=== PATIENT | female | born 1960 | race Caucasian/White ===

== ENCOUNTER 2021-04-10 10:49 | Outpatient (CLI) | payer BC ==
[2021-04-10 15:32] LABS: BASOPHILS % (AUTO) 0.9 %; EOSINOPHILS # (AUTO) 0.1 10^3/uL (0.0-0.7); EOSINOPHILS % (AUTO) 2.6 %; HGB - HEMOGLOBIN 15.3 g/dL (12.0-16.0); LYMPHOCYTES # (AUTO) 1.5 10^3/uL (1.5-3.5); LYMPHOCYTES % (AUTO) 32.3 %; MEAN CORPUSCULAR HGB CONC 33.3 g/dL (32.0-36.0); MEAN CORPUSCULAR VOLUME 90.2 fL (81.0-99.0); MEAN PLATELET VOLUME 11.7 fL (7.9-10.8); MONOCYTES # (AUTO) 0.3 10^3/uL (0.0-1.0); MONOCYTES % (AUTO) 6.9 %; NEUTROPHILS # (AUTO) 2.7 10^3/uL (1.5-6.6); NEUTROPHILS % (AUTO) 57.1 %; PLT - PLATELET COUNT 210 10^3/uL (130-450); WHITE BLOOD COUNT 4.7 x10^3/uL (4.8-10.8)
[2021-04-10 15:37] LABS: ALBUMIN 4.2 g/dL (3.2-5.5); ALBUMIN/GLOBULIN RATIO 1.3 (1.0-2.2); ALKALINE PHOSPHATASE 58 IU/L (42-121); ALT ALANINE AMINOTRANSFERASE 21 IU/L (10-60); AST ASPARTATE AMINOTRANSFERASE 22 IU/L (10-42); BILIRUBIN,TOTAL 1.7 mg/dL (0.2-1.0); BUN - BLOOD UREA NITROGEN 10 mg/dL (6-20); CALCIUM 9.4 mg/dL (8.5-10.3); CARBON DIOXIDE - CO2 26 mmol/L (21-32); CHLORIDE 104 mmol/L (101-111); CHOL/HDL RATIO 2.8 (<4.4); CHOLESTEROL 182 mg/dL; CREATININE 0.7 mg/dL (0.4-1.0); CRP HIGH SENSITIVITY 0.8 mg/L; GFR - MDRD 85 (>89); GLUCOSE 88 mg/dL (70-100); HDL CHOLESTEROL 65 mg/dL; LDL CHOLESTEROL,CALCULATED 105 mg/dL; LDL/HDL RATIO 1.6 (<4.4); POTASSIUM 3.8 mmol/L (3.5-5.0); SODIUM 138 mmol/L (135-145); TOTAL PROTEIN 7.4 g/dL (6.7-8.2); TRIGLYCERIDES 58 mg/dL; VLDL CHOLESTEROL 12 mg/dL
[2021-04-10 16:03] LABS: THYROID STIMULATING HORMONE 1.44 uIU/mL (0.34-5.60)
[2021-04-10 16:04] LABS: FREE T3 3.55 pg/mL (2.5-3.9)
[2021-04-10 16:05] LABS: FREE T4 (FREE THYROXINE) 0.92 ng/dL (0.58-1.64)
[2021-04-10 19:52] LABS: BILIRUBIN,URINE NEGATIVE (NEGATIVE); GLUCOSE, URINE (UA) NEGATIVE (NEGATIVE); KETONES,URINE (UA) 15 mg/dL (NEGATIVE); LEUKOCYTE ESTERASE, URINE NEGATIVE (NEGATIVE); NITRITE,URINE NEGATIVE (NEGATIVE); OCCULT BLOOD,URINE NEGATIVE (NEGATIVE); PH,URINE 6.5 PH (5.0-7.5); PROTEIN,URINE NEGATIVE (NEGATIVE); UROBILINOGEN,URINE 0.2 (NORMAL) E.U./dL (NORMAL)
[2021-04-10 19:55] LABS: CLARITY,URINE CLEAR (CLEAR)
[2021-04-10 20:10] LABS: ESTIMATED AVERAGE GLUCOSE 108 mg/dL (70-100); HEMOGLOBIN A1c% 5.4 % (4.27-6.07)
== END 2021-04-10 10:50 | disposition home or self-care (01) ==
LOC: LAB.S 10:49
PROVIDERS: ATTEND Acupuncturist
DX: Z13.1 Encounter for screening for diabetes mellitus (principal); Z13.21 Encounter for screening for nutritional disorder; Z13.220 Encounter for screening for lipoid disorders; Z13.228 Encounter for screening for other metabolic disorders; Z13.29 Encounter for screening for other suspected endocrine disorder; Z13.0 Encounter for screening for diseases of the blood and blood-forming organs and certain disorders involving the immune mechanism; R53.83 Other fatigue; R13.12 Dysphagia, oropharyngeal phase; E03.9 Hypothyroidism, unspecified
CPT/HCPCS: 36415; 80053; 80061; 81001; 81003; 82784; 83036; 83516; 83721; 84439; 84443; 84481; 85025; 86141; 86255; 86376; 87902

== ENCOUNTER 2022-12-07 | Day surgery (SDC) | payer BC, OTHER ==
[2022-12-07] MEDS ORDERED: MORPHINE 10 MG/ML VIAL IVP STA (00:16)
[2022-12-07] MEDS ORDERED: ONDANSETRON 4 MG/2 ML VIAL IVP STA (00:16)
[2022-12-07] MEDS ORDERED: SODIUM CHLORIDE 0.9% 500 ML IV STA (00:22)
--- NOTE | 2022-12-07 00:23 | ED Physician Documentation ---
PD HPI ABD PAIN - Stated complaint Stated Complaint: ABD PX - Chief complaint Chief Complaint: Abd Pain - History obtained from History obtained from: Patient - Additional information Additional information: 62yF, previously healthy, p/w nausea and RUQ abdominal pain starting about 30 minutes after eating tonight with colicky sensation. she has had intermittent issues similar to this before without diagnosis. denies fever/chills, v/d urinary sx. PD PAST MEDICAL HISTORY - Past Surgical History Past Surgical History: No - Present Medications Home Medications: Ambulatory Orders Medication Instructions Recorded Confirmed Promethazine [Phenergan] 25 - 50 mg PO Q6H PRN #10 tab 12/23/15 - Allergies Allergies/Adverse Reactions: Allergies Allergy/AdvReac Type Severity Reaction Status Date / Time Sulfa (Sulfonamide Allergy Nausea Verified 12/07/22 00:02 Antibiotics) - Social History Does the pt smoke?: No Smoking Status: Never smoker Does the pt drink ETOH?: Yes Does the pt have substance abuse?: No - Immunizations Immunizations are current?: No PD ED PE NORMAL - Vitals Vital signs reviewed: Yes - General General: Alert and oriented X 3, No acute distress, Well developed/nourished - HEENT HEENT: Atraumatic, PERRL, EOMI, Moist mucous membranes - Neck Neck: Supple, no meningeal sign - Cardiac Cardiac: RRR - Respiratory Respiratory: No respiratory distress, Clear bilaterally - Abdomen Abdomen: Non tender, Non distended, Other (discomfort in RUQ to palpation) - Derm Derm: Normal color, Warm and dry Results - Vitals Vitals: Vital Signs - 24 hr 12/07/22 12/07/22 12/07/22 00:02 00:35 01:19 Temperature 36.5 C Heart Rate 81 66 76 Respiratory 16 18 16 Rate Blood Pressure 130/90 H 144/102 H 140/85 H O2 Saturation 99 100 100 12/07/22 02:17 Temperature Heart Rate 79 Respiratory 16 Rate Blood Pressure 139/84 H O2 Saturation 99 Oxygen O2 Source Room air - Labs Labs: Laboratory Tests 12/07/22 12/07/22 12/07/22 00:30 00:30 01:58 WBC 11.1 H RBC 5.07 Hgb 14.9 Hct 45.3 MCV 89.3 MCH 29.4 MCHC 32.9 RDW 11.9 L Plt Count 265 MPV 10.5 Neut # (Auto) 8.7 H Lymph # (Auto) 1.5 [place] # (Auto) 0.7 Eos # (Auto) 0.1 Baso # (Auto) 0.1 Absolute Nucleated RBC 0.00 Nucleated RBC % 0.0 Sodium 134 L Potassium 3.3 L Chloride 99 L Carbon Dioxide 24 Anion Gap 11.0 BUN 14 Creatinine 0.7 Estimated GFR (MDRD) 85 L Glucose 125 H Calcium 9.0 Total Bilirubin 1.3 H AST 26 ALT 42 Alkaline Phosphatase 61 Total Protein 8.4 H Albumin 4.6 Globulin 3.8 Albumin/Globulin Ratio 1.2 Lipase 31 Urine Color YELLOW Urine Clarity CLEAR Urine pH 6.5 Ur Specific [place] 1.010 Urine Protein NEGATIVE Urine Glucose (UA) NEGATIVE Urine Ketones 40 H Urine Occult Blood NEGATIVE Urine Nitrite NEGATIVE Urine Bilirubin NEGATIVE Urine Urobilinogen 0.2 (NORMAL) Ur Leukocyte Esterase NEGATIVE Urine RBC 0-5 Urine WBC 0-3 Ur Squamous Epith Cells RARE Squamous Urine Bacteria None Seen Urine Culture Comments NOT INDICATED PD Medical Decision Making - ED course ED course: 62yF presents to ED with likely gallstone colick. doubt cholecystitis given she is without fever, well appearing with benign vitals. no ultrasound available overnight. symptoms controlled with IV morphine and IVF. Labwork remarkable for tbili 1.3. leukocytosis on labwork and ct showed gallstones with pericholecystic inflammation concerning for cholecystitis. d/w dr. damon who will admit to same day surgery. Departure - Departure Disposition: ED Transfer to [facility] Clinical Impression: RUQ pain, Cholecystitis, Leukocytosis Condition: Stable Forms: PCP List
[2022-12-07 00:34] LABS: BASOPHILS # (AUTO) 0.1 10^3/uL (0.0-0.1); BASOPHILS % (AUTO) 0.5 %; EOSINOPHILS # (AUTO) 0.1 10^3/uL (0.0-0.7); EOSINOPHILS % (AUTO) 1.1 %; HCT - HEMATOCRIT 45.3 % (37.0-47.0); HGB - HEMOGLOBIN 14.9 g/dL (12.0-16.0); LYMPHOCYTES # (AUTO) 1.5 10^3/uL (1.5-3.5); LYMPHOCYTES % (AUTO) 13.8 %; MEAN CORPUSCULAR HEMOGLOBIN 29.4 pg (27.0-31.0); MEAN CORPUSCULAR HGB CONC 32.9 g/dL (32.0-36.0); MEAN CORPUSCULAR VOLUME 89.3 fL (81.0-99.0); MEAN PLATELET VOLUME 10.5 fL (7.9-10.8); MONOCYTES # (AUTO) 0.7 10^3/uL (0.0-1.0); MONOCYTES % (AUTO) 5.9 %; NEUTROPHILS # (AUTO) 8.7 10^3/uL (1.5-6.6); NEUTROPHILS % (AUTO) 78.4 %; PLT - PLATELET COUNT 265 10^3/uL (130-450); RED BLOOD COUNT 5.07 10^6/uL (4.20-5.40); RED CELL DISTRIBUTION WIDTH 11.9 % (12.0-15.0); WHITE BLOOD COUNT 11.1 x10^3/uL (4.8-10.8)
[2022-12-07 00:48] LABS: ALBUMIN 4.6 g/dL (3.2-5.5); ALBUMIN/GLOBULIN RATIO 1.2 (1.0-2.2); BILIRUBIN,TOTAL 1.3 mg/dL (0.2-1.0); CREATININE 0.7 mg/dL (0.4-1.0); POTASSIUM 3.3 mmol/L (3.5-5.0); TOTAL PROTEIN 8.4 g/dL (6.7-8.2)
[2022-12-07] MEDS ORDERED: MORPHINE 2 MG/ML CARPUJECT IVP STA ×2 (01:46→04:30)
[2022-12-07] MEDS ORDERED: iohexoL-300 100 ML VIAL ONE (02:01)
[2022-12-07 02:04] LABS: BILIRUBIN,URINE NEGATIVE (NEGATIVE); GLUCOSE, URINE (UA) NEGATIVE (NEGATIVE); KETONES,URINE (UA) 40 mg/dL (NEGATIVE); LEUKOCYTE ESTERASE, URINE NEGATIVE (NEGATIVE); NITRITE,URINE NEGATIVE (NEGATIVE); OCCULT BLOOD,URINE NEGATIVE (NEGATIVE); PH,URINE 6.5 PH (5.0-7.5); PROTEIN,URINE NEGATIVE (NEGATIVE); UROBILINOGEN,URINE 0.2 (NORMAL) E.U./dL (NORMAL)
[2022-12-07 02:06] LABS: CLARITY,URINE CLEAR (CLEAR)
[2022-12-07 02:09] LABS: BACTERIA,URINE None Seen /HPF (None Seen); RBC,URINE 0-5 /HPF (0-5); SQUAMOUS EPITHELIAL CELL,UR RARE Squamous (<= Few); WBC,URINE 0-3 /HPF (0-5)
[2022-12-07] MEDS ORDERED: iohexoL-300 100 ML VIAL IVP ONE (02:46)
[2022-12-07] MEDS ORDERED: SODIUM CHLORIDE 0.9% 1,000 ML IV STA (03:32)
[2022-12-07] MEDS ORDERED: PIPERACILLIN/TAZOBACTAM 3.375 GM in SODIUM CHLORIDE 0.9% MINIBAG 100 ML IV STA (03:32)
[2022-12-07] MEDS ORDERED: IBUPROFEN 400 MG TABLET PO STA (03:43)
[2022-12-07] MEDS ORDERED: POTASSIUM CHLORIDE 20 MEQ TABLET PO STA (03:43)
[2022-12-07] MEDS ORDERED: ONDANSETRON 4 MG/2 ML VIAL IVP PRN ×4 (03:43→11:55)
[2022-12-07] MEDS ORDERED: ACETAMINOPHEN 500 MG TABLET PO STA (03:43)
[2022-12-07] MEDS ORDERED: GABAPENTIN 100 MG CAPSULE PO STA (03:43)
[2022-12-07] MEDS ORDERED: POTASSIUM CHLORIDE 20 MEQ/15 ML UDC PO STA (04:30)
[2022-12-07] MEDS: SODIUM CHLORIDE 0.9% 1,000 ML IV SCH ×2 (05:12→13:22)
--- NOTE | 2022-12-07 08:03 | CT Report ---
PROCEDURE: ABDOMEN/PELVIS W INDICATIONS: RUQ pain CONTRAST: Omni 300 100ml TECHNIQUE: After the administration of contrast, 5 mm thick sections acquired from the diaphragms to the symphys is. 5 mm thick coronal and sagittal reformats were acquired. For radiation dose reduction, the foll owing was used: automated exposure control, adjustment of mA and/or kV according to patient size. COMPARISON: None. FINDINGS: Image quality: Excellent. Lung bases and heart: Unremarkable. Liver: No solid mass. Normal size. Mild hepatic steatosis. Gallbladder and biliary tree: A small gallstones layering in the dependent gallbladder. There is stra nding around the gallbladder suspicious for acute cholecystitis. Spleen: No splenomegaly. Pancreas: No pancreatic ductal dilation. Adrenals: No adrenal nodule. Kidneys and ureters: No hydronephrosis. No renal cystic lesion which requires follow up. No solid mas s. Bowel and peritoneum: No bowel distension. No pathologic free fluid. Lymph nodes: No central or retroperitoneal adenopathy. Vessels: No infrarenal aortic aneurysm. PELVIS Reproductive organs: Unremarkable. Bladder: No abnormal wall thickening, accounting for underdistension. Pelvic lymph nodes: No pelvic adenopathy by size criteria. Bones: No aggressive osseous abnormality. Other: No significant ventral or inguinal hernia. IMPRESSION: 1. Question cholelithiasis. There is pericholecystic stranding. Suspect acute cholecystitis. Findings are concordant with preliminary interpretation provided by [facility]. Reviewed by: Johnson Ochoa MD on 12/07/2022 8:01 AM PDT Approved by: Johnson Ochoa MD on 12/07/2022 8:01 AM PDT Station ID: [id number]
[2022-12-07] MEDS ORDERED: BUPIVACAINE 0.25% PF 30 ML VIAL ONE (08:34)
[2022-12-07] MEDS ORDERED: iohexoL-240 10 ML VIAL IVP ONE (08:34)
[2022-12-07] MEDS ORDERED: LIDOCAINE 1%-EPI 1:100000 20 ML MDV ONE (08:34)
[2022-12-07] MEDS ORDERED: PROPOFOL 200 MG/20 ML VIAL IVP ONE (08:34)
[2022-12-07] MEDS ORDERED: ROCURONIUM 50 MG/5 ML VIAL ONE ×2 (08:34→10:24)
[2022-12-07] MEDS ORDERED: MORPHINE 2 MG/ML CARPUJECT IVP PRN ×2 (08:37→11:45)
[2022-12-07] MEDS ORDERED: fentaNYL 100 MCG/2 ML VIAL IVP PRN ×2 (08:37→11:45)
[2022-12-07] MEDS ORDERED: HYDROmorphone 0.5 MG/0.5 ML SYRINGE IVP PRN ×3 (08:37→11:55)
[2022-12-07] MEDS ORDERED: ATROPINE ABBOJECT 1 MG/10 ML SYRINGE IVP PRN ×2 (08:37→11:45)
[2022-12-07] MEDS ORDERED: NALOXONE 0.4 MG/ML VIAL IVP PRN ×2 (08:37→11:45)
[2022-12-07] MEDS ORDERED: fentaNYL 100 MCG/2 ML VIAL ONE (08:37)
[2022-12-07] MEDS ORDERED: MIDAZOLAM 2 MG/2 ML VIAL ONE (08:37)
--- NOTE | 2022-12-07 08:37 | ANESTHESIA ---
Pre-Anesthesia VS, & Labs - Diagnosis acute cholecystitis - Procedure lap taryn Vital Signs: Temp Pulse Resp BP Pulse Ox O2 Flow Rate 37.0 C 83 18 124/81 H 97 12/07/22 07:44 12/07/22 07:44 12/07/22 07:44 12/07/22 07:44 12/07/22 07:44 Height: 5 ft 2.5 in Weight (kg): 81 kg Body Mass Index: 32.1 BMI Classification: Obese - NPO >8 hours - Is Patient ?: Not Applicable - Lab Results Current Lab Results: Laboratory Tests 12/07/22 00:30: Sodium 134 L, Potassium 3.3 L, Chloride 99 L, Carbon Dioxide 24, Anion Gap 11.0, BUN 14, Creatinine 0.7, Estimated GFR (MDRD) 85 L, Glucose 125 H , Calcium 9.0, Total Bilirubin 1.3 H, AST 26, ALT 42, Alkaline Phosphatase 61, Total Protein 8.4 H, Albumin 4.6, Globulin 3.8, Albumin/Globulin Ratio 1.2, Lipase 31 12/07/22 00:30: WBC 11.1 H, RBC 5.07, Hgb 14.9, Hct 45.3, MCV 89.3, MCH 29.4, MCHC 32.9, RDW 11.9 L, Plt Count 265, MPV 10.5, Neut # (Auto) 8.7 H, Lymph # (Auto) 1.5, [place] # (Auto) 0.7, Eos # (Auto) 0.1, Baso # (Auto) 0.1, Absolute Nucleated RBC 0.00, Nucleated RBC % 0.0 Fish Bones: 12/07/22 00:30 12/07/22 00:30 Home Medications and Allergies Home Medications: Ambulatory Orders No Known Home Medications 12/07/22 Active Medications Sodium Chloride (Normal Saline 0.9%) 1,000 mls @ 125 mls/hr IV .Q8H TONY Last Admin: 12/07/22 05:12 Dose: 125 mls/hr Ondansetron HCl (Ondansetron 4 Mg/2 Ml Vial) 4 mg IVP Q6HR PRN PRN Reason: Nausea / Vomiting No Known Home Medications 12/07/22 Allergies/Adverse Reactions: Allergies Allergy/AdvReac Type Severity Reaction Status Date / Time Sulfa (Sulfonamide Allergy Nausea Verified 12/07/22 00:02 Antibiotics) Anes History & Medical History - Anesthetic History Family history of Anesthesia Complications: Denies Family history of Malignant Hyperthermia: Denies - Medical History Cardiovascular: reports: None Pulmonary: reports: Asthma Gastrointestinal: reports: None Urinary: reports: None Neuro: reports: None Musculoskeletal: reports: None Endocrine/Autoimmune: reports: HyPOthyroidism (had history of, not currently) Blood Disorders: reports: None Skin: reports: None Smoking Status: Never smoker Psychosocial: reports: No issues indicated History of Cancer?: No Other Past Medical History: reports episodes of dysphagia Exam General: Alert, Oriented x3, Cooperative, No acute distress Dental: WNL Mouth Openin Fingerbreadth Neck Mobility: Normal Mallampati classification: II Thyromental Distance: 4-6 cm Mental/Cognitive Status: Alert/Oriented X3, Normal for patient Plan Anesthesia Type: General Consent for Procedure(s) Verified and Reviewed: Yes Code Status: Attempt Resuscitation ASA classification: 2-Mild systemic disease Is this case an emergency?: Yes
[2022-12-07] MEDS ORDERED: ceFAZolin 2 GM in SODIUM CHLORIDE 0.9% MINIBAG 100 ML IV ONE (08:42)
--- NOTE | 2022-12-07 08:52 | SURGERY HX AND PHYSICAL(T) ---
Surgical History & Physical - Chief Complaint/HPI Chief Complaint: abdominal pain History of Present Illness: The patient reports acute onset of epigastric and right upper quadrant pain that radiated in a bandlike distribution across her upper abdomen after eating dinner yesterday evening. The patient had pasta for dinner and began having symptoms approximately 30 minutes later. She describes her pain as sharp and constant with acute intermittent exacerbations. Changes in position, Tums, and time did not improve her pain, so she came to the emergency department. Her pain was associated with nausea but no vomiting. She did not have fevers or chills. The patient reports that she had an episode of similar pain about a month ago when she was on vacation that lasted for about 3 days. Prior to this, she had never had similar symptoms in the past. She does not typically have GERD symptoms. She takes no home medications and has not had any previous abdominal surgeries. - PMH/PSH/Social Hx Neurological History: None Cardiovascular: None Respiratory: Asthma Skin: None Endocrine/Autoimmune: HyPOthyroidism (had history of, not currently) Gastrointestinal: None Urinary: None Musculoskeletal: None Blood Disorders: None Psychiatric: None PMH Other: reports episodes of dysphagia Smoking Status: Never smoker Does the pt drink ETOH?: Yes Frequency: Occasional Does the pt have substance abuse?: No - Family Hx Family Hx: Unremarkable - Home Meds and Allergies Home Medications: No Known Home Medications 12/07/22 Allergies/Adverse Reactions: Allergies Allergy/AdvReac Type Severity Reaction Status Date / Time Sulfa (Sulfonamide Allergy Nausea Verified 12/07/22 00:02 Antibiotics) - Review of Systems Constitutional: Other (A complete 10 point review of symptoms is otherwise negative except for that noted in HPI and PMH.) - Vital Signs Heart Rate: 81 Blood Pressure: 146/93 Temperature: 37.0 C Respiratory Rate: 18 O2 Saturation: 97 Weight (kg): 81 kg Height: 1.59 m - Physical Exam Comments/Other: GEN: No acute distress, appears stated age, alert and oriented, tired, patient states that she "did not sleep because she was in the ER all night " HEENT: NCAT, MMM, EOMI NEURO: CN II-XII grossly intact, no obvious focal deficits CV: RRR, no murmer appreciated PULM: CTAB, no wheezes appreciated ABD: soft, mild tenderness in the right upper quadrant, otherwise nontender, no rebound or guarding CIRCULATORY: no clubbing, cyanosis, or edema SKIN: no lesions appreciated LYMPH: no obvious lymphadenopathy MSK: 4/4 strength in all extremities PSYCH: Affect is appropriate - Patient Review Patient Review: Problems were reviewed with the patient during this visit. Medications were reviewed with the patient during this visit. Allergies were reviewed this patient during this visit. Pertinent Tests Reviewed: All pertitent test for this patient were reviewed. - Assessment & Plan Assessment and Plan: This is a 62-year-old female with: 1. acute cholecystitis -The patient's history, laboratory studies, imaging, and physical exam are consistent with this diagnosis I personally reviewed and interpreted the patient's CT scan. She has mild inflammation and trace pericholecystic fluid in the right upper quadrant around the gallbladder. Positive gallstones LFTs are grossly within normal limits with the exception of a very mildly elevated bilirubin at 1.3 The patient has been n.p.o. since she arrived at the hospital last night I discussed the natural history of acute cholecystitis with the patient. We also discussed the risks, benefits, and alternatives of laparoscopic taryn cystectomy with cholangiogram and possible open procedure. We discussed surgical risks including bleeding, infection, and damage to surrounding structures. We also discussed the intraoperative and postoperative plan including the possible need for drain placement and possibility of an open procedure. The patient voiced understanding, she questions were answered, and she wished to proceed with surgery. A consent was signed by the patient. -I anticipate the patient will be able to discharge home after surgery.
[2022-12-07] MEDS ORDERED: GABAPENTIN 300 MG CAPSULE PO SCH (09:00)
[2022-12-07] MEDS ORDERED: ACETAMINOPHEN 500 MG TABLET PO SCH (09:00)
[2022-12-07] MEDS ORDERED: LACTATED RINGERS 1,000 ML IV SCH ×2 (09:00→11:45)
[2022-12-07] MEDS ORDERED: ACETAMINOPHEN 1,000 MG/100 ML 1,000 MG/100 ML BAG IV ONE ×2 (09:04→09:44)
[2022-12-07] MEDS ORDERED: ONDANSETRON 4 MG/2 ML VIAL ONE (09:33)
[2022-12-07] MEDS ORDERED: DEXAMETHASONE 4 MG/ML VIAL ONE (09:33)
[2022-12-07] MEDS ORDERED: ceFAZolin 1 GM VIAL ONE (09:37)
[2022-12-07] MEDS ORDERED: SODIUM CHLORIDE 0.9% 10 ML VIAL IVP ONE (09:37)
[2022-12-07] MEDS ORDERED: metroNIDAZOLE 500 MG/100 ML 500 MG/100 ML BAG ONE (09:38)
[2022-12-07] MEDS ORDERED: IOTHALAMATE MEGLUMINE 50 ML VIAL IVP ONE ×2 (09:42)
[2022-12-07] MEDS ORDERED: BUPIVACAINE 0.5% PF 30 ML VIAL SUBQ ONE (09:43)
[2022-12-07] MEDS ORDERED: SODIUM CHLORIDE 0.9% 100 ML BAG IV ONE (09:43)
[2022-12-07] MEDS ORDERED: LIDOCAINE MPF 2%-EPI 1:200000 20 ML VIAL SUBQ ONE (09:43)
--- NOTE | 2022-12-07 10:14 | PHARMACY PROGRESS NOTE ---
- Best Possible Medication History Admit Date and Time: Processed by: Pharmacy Medication History completed: Yes Patient Interview: Pt interview ONLY source As the person ultimately responsible for medication therapy, providers are able to order a medication from an existing home medication list in [facility] via the "Reconcile Routine" prior to Confirmation of that medication by product support consultant. Such practice is discouraged except when the physician, in their clinical judgment, deems that a medical need exists for a medication without regard to previous use.
[2022-12-07] MEDS ORDERED: HYDROmorphone 1 MG/ML CARPUJECT ONE (10:26)
[2022-12-07] MEDS ORDERED: SUGAMMADEX 200 MG/2 ML VIAL IVP ONE (11:23)
[2022-12-07] MEDS: KETOROLAC 15 MG/ML VIAL IVP SCH ×2 (11:30→18:26)
[2022-12-07] MEDS ORDERED: KETOROLAC 30 MG/ML VIAL ONE (11:43)
[2022-12-07] MEDS ORDERED: HYDROcodone/ACETAM 7.5 MG/325 MG 15 ML UDC PO PRN (11:55)
[2022-12-07] MEDS ORDERED: LACTATED RINGERS 1,000 ML IV ONE (11:56)
[2022-12-07] MEDS ORDERED: ACETAMINOPHEN 1,000 MG/100 ML 1,000 MG/100 ML BAG IV SCH (12:00)
--- NOTE | 2022-12-07 12:37 | OPERATIVE REPORT ---
Operative Report - General Procedure Date: 12/07/22 Planned Procedure: Laparoscopic cholecystectomy with intraoperative cholangiogram Pre-Op Diagnosis: Acute cholecystitis Procedure Performed: Laparoscopic cholecystectomy with intraoperative cholangiogram Post Op Diagnosis: Acute on chronic cholecystitis, cholelithiasis - Procedure Note Primary Surgeon: Dr. Roxie Chase Anesthesia Provider: Ryan Fam CRNA Anesthesia Technique: General ET tube, Local Estimated Blood Loss (mL): 30 Indications: The patient came to the emergency department department with right upper quadrant pain that began the night of her arrival. She has had similar pain in the past. Her laboratory studies, imaging, and physical exam are consistent with acute cholecystitis. For this the patient was admitted. I discussed the natural history of acute cholecystitis with the patient. We also discussed the risks, benefits, and alternatives of laparoscopic cholecystectomy with cholangiogram and possible open procedure. We discussed surgical risks including bleeding, infection, and damage to surrounding structures. We also discussed the intraoperative and postoperative plan including the possible need for drain placement and possibility of an open procedure. The patient voiced understanding, her questions were answered, and she wished to proceed with surgery. A consent was signed by the patient prior to surgery. Findings: 1.Acute on chronic cholecystitis 2. Extensive, woody edema at the hilum of the gallbladder 3. Normal cholangiogram Complications: None - Other Other Information/Narrative: The patient was brought to the operative suite and placed in the supine position. General endotracheal anesthesia was induced. Preoperative antibiotics were given. ERAS protocol was not followed due to the patient's inability to tolerate p.o. medication. A preop surgical timeout was performed. Local anesthetic was injected into the skin and subcutaneous tissues just inferior to the umbilicus. An 11 blade scalpel was used to make a 5 mm transverse skin incision in this location. Next, a hemostat was used to spread the tissues down to the level of the fascia and a Evie clamp was used to grasp and elevate the umbilical stalk. A Varess needle was used to gain access to the peritoneal space. Low flow insufflation revealed low pressures and then high flow insufflation was undertaken to 15 mmHg. Next, the Varess needle was removed and a 5 mm laparoscopic port was inserted in this location. Through this port, a 5 mm 30 degree laparoscope was inserted. On inspection of the abdomen no injury was caused on entry. Next, the patient was placed in reverse Trendelenburg and rotated slightly to the left. Two 5 mm ports were inserted in the right upper quadrant, one in the anterior axillary line and the other in the midclavicular line. Also, a 12 mm port was inserted in the subxiphoid region. All ports were placed by first anesthetizing the skin and subcutaneous tissues with local anesthetic, then by making an appropriate length incision with an 11 blade scalpel, and finally by placing the port under direct laparoscopic vision. Once the ports were in place, a ratcheted, toothed grasper was used to elevate the fundus of the gallbladder toward the patient's right shoulder. The gallbladder was noted to be markedly displaced bended. A laparoscopic aspiration needle was used to aspirate as much bile from the gallbladder as possible. There were loose and dense adhesions in the right upper quadrant between the omentum, duodenum, and the gallbladder.These were taken down with blunt and sharp dissection with electrocautery. Next, the peritoneum was incised starting at the hilum of the gallbladder and working toward the fundus along the gallbladder liver interface on the medial and lateral aspects of the gallbladder. This was very difficult due to extensive, woody edema making the tissue planes very difficult to identify. Next, attention was returned to the hilum of the gallbladder. The alveolar tissues in this region were taken down with blunt and sharp dissection with electrocautery taking great care not to cauterize though any tissue I could not easily see through. Again, woody edema in the area made it very difficult to identify structures. Dissection took much longer, well more than 3 times normal to accomplish. Two ductal structures were isolated and skeletonized such that each ductal structure could be visualized with liver present on either side. The cystic plate was also developed. At this time, it was felt that a critical view of safety had been obtained. Next, a clip was placed distally, that is toward the gallbladder, on the cystic duct and just proximal to this a ductotomy was performed. A cholangiogram catheter was placed within the duct and it was flushed with saline. There was no leakage and it flushed easily. Clips were also placed proximally and distally on the cystic artery. Full strength Isovue dye was then placed on the cholangiogram catheter and a cholangiogram was performed. The cholangiogram appeared normal. There was good filling of the right and left hepatic system as well as the duodenum and common bile duct. There were no filling defects. Next the cholangiogram catheter was removed. Two clips were placed proximally on the cystic duct. The cystic duct and cystic artery were divided using laparoscopic scissors between the clips. Next the gallbladder was dissected off of the liver bed. Again, this process was difficult, as the gallbladder was partially intrahepatic, and the edema made tissue planes very difficult to identify. Once it was completely freed, the gallbladder was placed in an Endo Catch bag and removed through the epigastric port. The epigastric port was replaced and suction and irrigation were used to remove any fluid from the right upper quadrant. This was done until the fluid returned was clear. Next, quarter percent Marcaine with epinephrine in the amount of 10 mL was infused into the right upper quadrant along the liver diaphragm interface to reduce to postoperative pain. Next, a laparoscopic fascial closure device was used to place 3, interrupted 0 Vicryl sutures at the epigastric port. This reapproximated the fascia well. The remaining ports were removed under direct laparoscopic vision and the abdomen was deflated. Next, the skin edges were reapproximated with 4-0 Monocryl in an interrupted subcuticular fashion. A sterile dressing of skin glue was placed. The patient tolerated the procedure well. The patient was extubated in the operating room and transferred to the recovery room in stable condition. There were no complications. Notably, this procedure was far more difficult than the average case. It took more than 2 times the average time given the extensive edema encountered during dissection.
--- NOTE | 2022-12-07 13:03 | ANESTHESIA POST OP EVALUATION ---
Anesthesia Post Eval - Post Anesthesia Eval Vitals: Last Vital Signs Temp 37 C 12/07/22 12:41 Pulse 87 12/07/22 12:51 Resp 15 12/07/22 12:51 BP 105/68 12/07/22 12:51 Pulse Ox 95 12/07/22 12:51 O2 Flow Rate CV Function Including HR & BP: Stable Pain Control: Satisfactory Nausea & Vomiting: Negative Mental Status: Baseline Respiratory Status: Airway Patent Hydration Status: Satisfactory Anesthesia Complications: None
[2022-12-07] MEDS: metroNIDAZOLE 500 MG/100 ML 500 MG/100 ML BAG IV SCH ×2 (13:11→17:10)
[2022-12-07 19:59] VITALS: BP 112/70
--- NOTE | 2022-12-09 15:06 | XRAY Report ---
PROCEDURE: OR Cholangiogram INDICATIONS: gallstone TECHNIQUE: A single image was obtained during an intraoperative echocardiogram. COMPARISON: Abdominal CT, 12/07/2022. FINDINGS: The surgeon has cannulated the cystic duct during an intraoperative cholangiogram. On this image, the common iliac demonstrates normal caliber. No filling defects are seen to suggest g allstones. No strictures are seen. There is free spill of contrast into the duodenum. IMPRESSION: No significant intraoperative abnormality is seen. Reviewed by: Sami Camacho MD on 12/09/2022 2:05 PM [facility] Approved by: Sami Camacho MD on 12/09/2022 2:05 PM DEM[facility] Station ID: [id number]
== END 2022-12-07 19:49 | disposition home or self-care (01) ==
LOC: ED → SDS 05:13 → MS3 06:23 → SDS 19:49
PROVIDERS: ATTEND Surgery
PROC: BF141ZZ Fluoroscopy of Gallbladder, Bile Ducts and Pancreatic Ducts using Low Osmolar Contrast (ICD-10-PCS; 2022-12-07)
PROC: 0FT44ZZ Resection of Gallbladder, Percutaneous Endoscopic Approach (ICD-10-PCS; principal; 2022-12-07 09:00)
DX: K80.12 Calculus of gallbladder with acute and chronic cholecystitis without obstruction (principal); E66.9 Obesity, unspecified; Z68.32 Body mass index [BMI] 32.0-32.9, adult; J45.909 Unspecified asthma, uncomplicated
CPT/HCPCS: 36415; 47563; 74177; 74300; 80053; 81001; 83690; 85025; 96374; 96376; 99284; 99285; A9270; C1758; J0131; J1170; J7120; Q9961; Q9966; Q9967; 87086